=== PATIENT | female | born 1980 | race Caucasian/White ===

== ENCOUNTER 2016-09-17 17:58 | Inpatient (IN) | payer BC ==
[2016-09-17 22:42] LABS: Hematocrit 37 % (35-47); Hemoglobin 12.3 g/dl (12.0-16.0); Mean Corpuscular HGB Conc 34 g/dl (31-36); Mean Corpuscular Hemoglobin 30 pg (27-31); Mean Corpuscular Volume 88 fL (80-97); Mean Platelet Volume 9 um3 (7.4-10.4); Red Blood Count 4.16 10^6/ul (4.0-5.4); Red Cell Distribution Width 15 % (10.5-15); White Blood Count 21.8 10^3/ul (3.5-10.8)
[2016-09-17] MEDS ORDERED: Ondansetron INJ* 2 MG/ML VIAL ONE (23:06)
[2016-09-17] MEDS ORDERED: Ondansetron INJ* 2 MG/ML VIAL IV ONE (23:06)
[2016-09-17] MEDS ORDERED: OBEPIDURAL* 250 ML ONE (23:12)
[2016-09-17] MEDS ORDERED: Terbutaline INJ* 1 MG/ML VIAL SUBCUT ONE (23:49)
[2016-09-17] MEDS ORDERED: Terbutaline INJ* 1 MG/ML VIAL ONE (23:51)
[2016-09-18] MEDS ORDERED: Sodium Bicarbonate 8.4% SYR* 10 ML SYRINGE ONE (00:12)
[2016-09-18] MEDS ORDERED: Morphine PF AMP (0.5MG/ML)* 5 MG/10 ML AMP ONE (00:16)
[2016-09-18] MEDS ORDERED: Sodium Citrate/Citric Acid* 15 ML UDC ONE (00:20)
[2016-09-18] MEDS ORDERED: ceFOXitin 2 GM IVPREMIX* 2 GM/50 ML BAG ONE (00:20)
[2016-09-18] MEDS ORDERED: OXYTOCIN* 10 UNITS/ML 1 ML VIAL ONE ×2 (00:29→01:01)
[2016-09-18] MEDS ORDERED: Ondansetron INJ* 2 MG/ML VIAL ONE (00:29)
[2016-09-18] MEDS ORDERED: Phenylephrine IV* 40 MCG/ML 10 ML SYRINGE ONE (00:29)
[2016-09-18] MEDS ORDERED: Lidocaine 2% EPI 1:200000 MPF* 20 ML VIAL ONE (00:29)
[2016-09-18] MEDS ORDERED: Dexamethasone IV* 4 MG/ML 1 ML (4 MG) ONE (00:29)
[2016-09-18] MEDS ORDERED: ceFOXitin 2 GM IVPREMIX* 2 GM/50 ML BAG IVPB ONE (00:37)
[2016-09-18] MEDS ORDERED: Ketorolac INJ* 30 MG/ML 1 ML VIAL IV PRN (01:06)
[2016-09-18] MEDS ORDERED: fentaNYL* 50 MCG/ML 2 ML VIAL (100 MCG VIAL) IV PRN (01:06)
[2016-09-18] MEDS ORDERED: Naloxone* 0.4 MG/ML 1 ML VIAL IV PRN (01:06)
[2016-09-18] MEDS ORDERED: Scopolomine PATCH Remove* 1 NOTE MISC PATCH OFF PRN (01:06)
[2016-09-18] MEDS ORDERED: oxyCODONE/Acetamin 5/325 MG* TAB PO PRN ×3 (01:06→16:30)
[2016-09-18] MEDS ORDERED: Sodium Citrate/Citric Acid* 15 ML UDC PO PRN (01:06)
[2016-09-18] MEDS ORDERED: Scopolamine 1.5 mg* PATCH TRANSDERM PRN (01:06)
[2016-09-18] MEDS ORDERED: Famotidine TAB* 20 MG PO PRN (01:06)
[2016-09-18] MEDS ORDERED: Nalbuphine* 20 MG/ML 1 ML VIAL IV PRN ×2 (01:06)
[2016-09-18] MEDS ORDERED: Phenylephrine IV* 40 MCG/ML 10 ML SYRINGE IV PUSH PRN ×2 (01:06)
[2016-09-18] MEDS ORDERED: DiMENhydriNATE IV* 50 MG/ML VIAL IV PUSH PRN (01:06)
[2016-09-18] MEDS ORDERED: Ondansetron INJ* 2 MG/ML VIAL IV PRN (01:06)
[2016-09-18] MEDS ORDERED: Glycerin ADULT SUPP PR PRN (02:00)
[2016-09-18] MEDS ORDERED: Zolpidem TAB* 5 MG PO PRN (02:00)
[2016-09-18] MEDS ORDERED: Ibuprofen TAB* 600 MG PO SCH ×2 (02:00→11:00)
[2016-09-18] MEDS ORDERED: Acetaminophen TAB* 325 MG PO PRN (02:00)
[2016-09-18] MEDS ORDERED: Witch Hazel PAD* JAR TOPICAL PRN (02:00)
[2016-09-18] MEDS ORDERED: Dibucaine 1% 28.35 GM TUBE PR PRN (02:00)
--- NOTE | 2016-09-18 04:35 | OP ---
OPERATIVE NOTE: DATE OF SURGERY: 09/18/16 DATE OF : 84 SURGEON: Edna Rodriguez MD [employer] TENDER: Manuel Pelayo CNM PRE-OP DIAGNOSIS: Intrauterine gestation at 41 weeks gestational age, category 2 heart tracin g remote from delivery. POST-OP DIAGNOSIS: Intrauterine gestation at 41 weeks gestational age, category 2 heart yosvany ng remote from delivery, thick meconium. OPERATIVE PROCEDURE: Primary low transverse section. ESTIMATED BLOOD LOSS: 800 mL. FLUIDS: Crystalloid. DRAINS: Weaver catheter. COUNTS: All correct. INDICATIONS: The patient presented to Labor and Delivery in active labor, was only 3 cm. She had i nitially had variable decelerations. She received an epidural and eventually she began having recur rent late decelerations. She was nitin every 2 to 3 minutes at this point in time. She was g iven a dose terbutaline which resulted in an improved heart tracing. However, due to the marky y stage of labor and significant decelerations with contraction, the discussion was had with the pat ient and the decision was made to proceed with primary section. Consents were signed and qu estions were answered. FINDINGS: Normal appearing uterus, ovaries, and tubes. Normal appearing intact placenta. Thick me conium. Female Apgars of 8 and 9, weighing 8 pounds 3 ounces. DESCRIPTION OF PROCEDURE: The patient already had an epidural anesthesia that was found to be adequ ate. She was prepped and draped in the dorsal supine position with a leftward tilt. She also alrea dy had a Weaver catheter in place and SCD's were placed on her legs. A time-out was performed. A Pf annenstiel skin incision was then made with a scalpel and carried down to the underlying layer of fa scia with a combination of sharp dissection and the Bovie. The fascia was incised on either side of the midline and the fascial incision extended laterally with sharp dissection. The inferior edge o f the fascial incision was grasped with Connie clamps, tented up and dissected down with a sharp dis section with the Quinones scissors. Then, the superior edge of the fascial incision was also grasped wi th Connie clamps, tented up and dissected down with sharp dissection. The rectus muscles were separ ated in midline and the peritoneum was entered with a combination of sharp and blunt dissection. Th e peritoneal incision was extended laterally with blunt dissection. A bladder blade was then insert ed. A transverse incision was made in the lower uterine segment with the scalpel. The incision was extended superiorly and inferiorly with blunt pressure. Thick meconium was noted. The infant's he ad was then delivered. One nuchal cord was reduced and the shoulders were delivered followed by the rest of the body. The cord was milked towards the baby and then clamped x2 and cut and the baby wa s handed to the cigarette filter inspector. Another section of cord was clamped for cord blood gases and then cor d blood was collected. The placenta delivered manually and appeared to be intact. The uterus was c leared of clots and debris, and the uterine incision was closed with 0 Vicryl in a running locked fa shion with the second layer of suture imbricating the first. One hvndfo-mu-[id number] suture with 3-0 chr omic was placed on the left hand side of the incision to give good hemostasis. The abdomen was irri gated, the gutters were cleared of clots and debris. The peritoneum was then closed with 3-0 chromi c in a running unlocked fashion. The fascia was closed with 0 Vicryl in a running unlocked fashion. The subcuticular layer was irrigated and the skin was then closed in a running subcuticular fashio n. The incision was cleaned. The Mastisol and Steri-Strips were placed. The patient was moved to the stretcher, and taken to the recovery room in stable condition. [id number]/[facility] #: [id number]
[2016-09-18] MEDS: OBEPIDURAL* 250 ML EPIDURAL SCH (05:28)
[2016-09-18] MEDS: Levothyroxine TAB* 50 MCG TAB PO SCH (05:55)
[2016-09-18] MEDS: Simethicone CHEW TAB* 80 MG PO SCH ×4 (08:59→19:55)
[2016-09-18] MEDS: Docusate CAP* 100 MG PO SCH ×3 (09:08→19:56)
[2016-09-18] MEDS: Ibuprofen TAB* 600 MG PO PRN (18:13)
[2016-09-18] MEDS: oxyCODONE/Acetamin 5/325 MG* TAB PO PRN (19:56)
[2016-09-19] MEDS: Ibuprofen TAB* 600 MG PO PRN ×4 (00:06→18:36)
[2016-09-19] MEDS: oxyCODONE/Acetamin 5/325 MG* TAB PO PRN ×5 (00:06→21:24)
[2016-09-19] MEDS: Levothyroxine TAB* 50 MCG TAB PO SCH (06:31)
[2016-09-19] MEDS: OBEPIDURAL* 250 ML EPIDURAL SCH (06:32)
[2016-09-19 07:07] LABS: Hematocrit 26 % (35-47); Hemoglobin 8.9 g/dl (12.0-16.0); Mean Corpuscular HGB Conc 34 g/dl (31-36); Mean Corpuscular Hemoglobin 31 pg (27-31); Mean Corpuscular Volume 91 fL (80-97); Mean Platelet Volume 8 um3 (7.4-10.4); Red Blood Count 2.92 10^6/ul (4.0-5.4); Red Cell Distribution Width 15 % (10.5-15); White Blood Count 15.5 10^3/ul (3.5-10.8)
[2016-09-19] MEDS: Docusate CAP* 100 MG PO SCH ×3 (08:30→21:23)
[2016-09-19] MEDS: Simethicone CHEW TAB* 80 MG PO SCH ×4 (08:30→21:23)
[2016-09-19] MEDS: Ferrous Gluconate TAB* 324 MG TAB PO SCH ×2 (08:30→21:23)
[2016-09-20] MEDS: Ibuprofen TAB* 600 MG PO PRN ×3 (04:15→21:58)
[2016-09-20] MEDS: oxyCODONE/Acetamin 5/325 MG* TAB PO PRN ×4 (04:15→21:59)
[2016-09-20] MEDS: Levothyroxine TAB* 50 MCG TAB PO SCH (06:32)
[2016-09-20] MEDS: Docusate CAP* 100 MG PO SCH ×3 (08:54→21:58)
[2016-09-20] MEDS: Ferrous Gluconate TAB* 324 MG TAB PO SCH ×2 (08:54→21:58)
[2016-09-20] MEDS: Simethicone CHEW TAB* 80 MG PO SCH ×4 (08:54→21:58)
[2016-09-20] MEDS: OBEPIDURAL* 250 ML EPIDURAL SCH (19:19)
[2016-09-21] MEDS: Ibuprofen TAB* 600 MG PO PRN ×2 (04:06→10:14)
[2016-09-21] MEDS: oxyCODONE/Acetamin 5/325 MG* TAB PO PRN ×2 (04:07→10:14)
[2016-09-21] MEDS: Levothyroxine TAB* 50 MCG TAB PO SCH (06:15)
[2016-09-21 08:39] VITALS: BP 100/58
[2016-09-21] MEDS: Ferrous Gluconate TAB* 324 MG TAB PO SCH (08:55)
[2016-09-21] MEDS: Simethicone CHEW TAB* 80 MG PO SCH (08:55)
[2016-09-21] MEDS: Docusate CAP* 100 MG PO SCH (08:55)
== END 2016-09-21 11:15 | disposition home or self-care (01) | DRG 540 ==
LOC: MCHOBOUT 17:58 → MCHOB 22:10
PROVIDERS: ADMIT Midwife; ATTEND Obstetrics & Gynecology
PROC: 10D00Z1 Extraction of Products of Conception, Low, Open Approach (ICD-10-PCS; principal; 2016-09-18 00:35)
DX: O76 Abnormality in fetal heart rate and rhythm complicating labor and delivery (principal); E03.9 Hypothyroidism, unspecified; O48.0 Post-term pregnancy; O99.284 Endocrine, nutritional and metabolic diseases complicating childbirth; O77.0 Labor and delivery complicated by meconium in amniotic fluid; O90.81 Anemia of the puerperium; D64.9 Anemia, unspecified; Z37.0 Single live birth; Z3A.41 41 weeks gestation of pregnancy
CPT/HCPCS: 36415; 85025; 86850; 86900; 86901; 88307; A9270-GY; J0694; J1100; J2405; J2590; J3105

== ENCOUNTER 2018-10-23 20:56 | Inpatient (IN) | payer BC ==
--- OUTSIDE RECORDS SUMMARY | 2018-10-23 21:00 | XMS REPORT | Continuity of Care Document ---
:1980 External Reference #:[id number] Author Name Jenny Albright MD Address [address] [place] [address] Care Team Providers Name Role Phone Eliana Oropeza PA-C Primary Care Physician Unavailable Payers Date Identification Numbers Payment Provider Subscriber Effective: Policy Number: [id number] Flaquitous BC/BS [facility] [place] [address] [place] PayID: [id number] [address] [address] [place] [address] Problems Active Problems Provider Date H/O: section Manuel Pelayo CNM Onset: 09/18/2016 Resolved Problems Primigravida Manuel Pelayo CNM Onset: 05/16/2016 Resolved: 09/18/2016 Family History Date Family Member(s) Observation Comments Father A&W Mother A&W First Daughter A&W First Brother A&W First Sister A&W Second Sister A&W Paternal Grandfather A&W Paternal Grandmother due to Natural () Causes Maternal Grandfather due to Heart Disease () - surgical complications Maternal Grandmother A&W Social History Type Date Description Comments Sex Unknown Education Highest level completed, Bachelor's Degree Marital Status Lives With Lives With Daughter Pets 2 dogs Occupation Faculty Physician [employer] Cigarette Use Former Cigarette Smoker quit December 2016 1 Pack Daily ETOH Use Alcohol Use Prior To 1 drink/month Tobacco Use Start: Unknown End: Patient is a former Unknown smoker Recreational Drug Use Denies Drug Use Smoking Status Reviewed: 10/16/18 Patient is a former smoker Seat Belt/Car Seat Always uses seat belt STD's Chlamydia Allergies, Adverse Reactions, Alerts Active Allergies Reaction Severity Comments Date Shellfish-derived Products 03/01/2016 Medications Active Medications SIG Qnty Indications Ordering Date Provider Levothyroxine Sodium Alternate between 60tabs Delmy Storey 05/30/2018 100mcg and 75mcg Jin, CNM 50mcg Tablets per day Multi +Dha 1 by mouth every 90caps Kenia Huston, 03/01/2016 day ANP-C 27-0.8-228mg Capsules Magnesium Unknown 500mg Capsules History Medications Ferrousul 1 tab by mouth 90tabs Edna Felipe, 06/16/2016 - 325(65Fe) mg twice a day (take CNM 06/28/2016 Tablets with orange juice or vit c tab) Levothyroxine Sodium alternates 100/75 Unknown - mcg 05/30/2018 50mcg Tablets Folic Acid 1 by mouth every Unknown - 1mg Tablets day 09/26/2016 Dha 1 by mouth every Unknown - 200mg day, ok to use 03/01/2016 Capsules 200-400mg dha Colace Unknown - 10/26/2016 Oxycodone-Acetaminophe Unknown - n 10/26/2016 Ibuprofen take one tab by Unknown - 600mg Tablets mouth every 6 10/26/2016 hours as needed pain Medications Administered in Office Medication SIG Qnty Indications Ordering Provider Date PT SCRN Tbco Id as Non User Jenny Albright MD 10/16/2018 Injection Immunizations CPT Code Status Date Vaccine Lot # [id number] Given 07/23/2018 Tetnus, Diptheria Toxoids And Acellular Pertussis, [id number] PT > 7Yrs Old [id number] Given 04/02/2018 Influenza Vaccine Quadrivalent Preser/Antibiotic [id number] Free Im Use 05687 Given 06/15/2016 Tetnus, Diptheria Toxoids And Acellular Pertussis, [id number] PT > 7Yrs Old Vital Signs Date Vital Result Comment 10/16/2018 9:41am BP Systolic 112 mmHg BP Diastolic 78 mmHg Body Temperature 98.2 F Heart Rate 68 /min Respiratory Rate 16 /min Height 62 inches 5'2" Weight 181.00 lb BMI (Body Mass Index) 33.1 kg/m2 Last Menstrual Period [id number] 2 Parity 1 04/02/2018 1:44pm BP Systolic 106 mmHg BP Diastolic 62 mmHg Height 62 inches 5'2" Weight 153.00 lb BMI (Body Mass Index) 28.0 kg/m2 Last Menstrual Period [id number] 2 Parity 1 01/24/2017 11:25am BP Systolic 104 mmHg BP Diastolic 62 mmHg Height 62 inches 5'2" Weight 145.00 lb BMI (Body Mass Index) 26.5 kg/m2 Last Menstrual Period [id number] 1 Parity 1 10/26/2016 10:04am BP Systolic 114 mmHg BP Diastolic 66 mmHg Height 62 inches 5'2" Weight 140.00 lb BMI (Body Mass Index) 25.6 kg/m2 Last Menstrual Period 7369627 1 Parity 1 09/26/2016 2:32pm BP Systolic 112 mmHg BP Diastolic 60 mmHg Body Temperature 98.2 F Height 62 inches 5'2" Weight 151.00 lb BMI (Body Mass Index) 27.6 kg/m2 Last Menstrual Period [id number] 1 Parity 1 03/01/2016 9:38am BP Systolic 120 mmHg BP Diastolic 70 mmHg Height 62 inches 5'2" Weight 141.00 lb BMI (Body Mass Index) 25.8 kg/m2 Last Menstrual Period 6022535 1 Parity 0 Results Test Date Facility Test Result H/L Range Note Laboratory test 10/02/2018 [facility] TSH 2.57 mcIU/mL N 0.34- 5.60 1 [place] [address] [phone] Free 0.91 ng/dL N 0.61-1.12 2 Laboratory test 09/25/2018 [facility] Genital For GRP B SEE RESULT 3 [place] [address] Strep Only BELOW [phone] Glucose Tolerance 08/06/2018 [facility] GTT 3HR (SEE NOTE) 4 3[place] [address] Gestational [phone] Laboratory test 07/23/2018 [facility] Glucose 1 HR Post 135 mg/ dL N 70-16 5 [place] [address] Prandial 0 [phone] CBC With No Diff 07/23/2018 [facility] White Blood Count 10.4 N 3.5-1 [place] [address] 10^3/uL 0.8 [phone] Red Blood Count 3.74 10^6/uL N 3.70-4.87 Hemoglobin 11.3 g/dL Low 12.0-16.0 Hematocrit 34 % N 33-41 Mean Corpuscular Volume 90 fL N 80-97 Mean Corpuscular Hemoglobin 30 pg N 27-31 Mean Corpuscular HGB Conc 34 g/dL N 31-36 Red Cell Distribution Width 13 % N 10.5-15 Platelet Count 251 10^3/uL N 150-450 Mean Platelet Volume 8.8 fL N 7.4-10.4 Laboratory test 07/23/2018 [facility] TSH 2.98 mcIU/mL N 0.34- 5.60 6 [place] [address] [phone] T4 Free 0.89 ng/dL N 0.61-1.12 7 Urine Drug 05/08/2018 [facility] Urine Amphetamine Negative ng/ mL 8 Comp 20 [place] [address] [phone] Urine Barbiturates Negative ng/mL 9 Urine Benzodiazepines Negative ng/mL 10 Urine Cocaine Negative ng/mL 11 Urine Phencyclidine Negative ng/mL Cutoff: 25 Urine Tetrahydrocannabinol Negative ng/mL Cutoff: 50 12 Creatinine, Urine 129.8 mg/dL Specific [place] 1.021 pH 6.0 Oxidants Negative 13 Adulterants Comment Normal Codeine, Ur Not Detected ng/mL Cutoff: 25 14 Ufihytc-3-qzgk-glucuronide, Ur Not Detected ng/mL 15 Morphine, Ur Not Detected ng/mL Cutoff: 25 16 Hogcyitr-5-ypje-glucuronide, U Not Detected ng/mL 17 6-monoacetylmorphine, Ur Not Detected ng/mL Cutoff: 25 18 Hydrocodone, Ur Not Detected ng/mL Cutoff: 25 19 Norhydrocodone, Ur Not Detected ng/mL Cutoff: 25 20 Dihydrocodeine, Ur Not Detected ng/mL Cutoff: 25 21 Hydromorphone, Ur Not Detected ng/mL Cutoff: 25 22 Fatgbxtduytkg9sxbduvpdmyqpgnr Not Detected ng/mL 23 Oxycodone, Ur Not Detected ng/mL Cutoff: 25 24 Noroxycodone, Ur Not Detected ng/mL Cutoff: 25 25 Oxymorphone, Ur Not Detected ng/mL Cutoff: 25 26 Xrzxamytxbq-2-muyc-glucuronide Not Detected ng/mL 27 Noroxymorphone, Ur Not Detected ng/mL Cutoff: 25 28 Fentanyl, Ur Not Detected ng/mL Cutoff: 2 29 Norfentanyl, Ur Not Detected ng/mL Cutoff: 2 30 Meperidine, Ur Not Detected ng/mL Cutoff: 25 31 Normeperidine, Ur Not Detected ng/mL Cutoff: 25 32 Naloxone, Ur Not Detected ng/mL Cutoff: 25 33 Fthrfjwu-3-naoq-glucuronide, U Not Detected ng/mL 34 Methadone, Ur Not Detected ng/mL Cutoff: 25 35 Eddp, Ur Not Detected ng/mL Cutoff: 25 36 Propoxyphene, Ur Not Detected ng/mL Cutoff: 25 37 Norpropoxyphene, Ur Not Detected ng/mL Cutoff: 25 38 Tramadol, Ur Not Detected ng/mL Cutoff: 25 39 O-desmethyltramadol, Ur Not Detected ng/mL Cutoff: 25 40 Tapentadol, Ur Not Detected ng/mL Cutoff: 25 41 N-desmethyltapentadol, Ur Not Detected ng/mL Cutoff: 50 42 Ngmdztpzvu-gzsn-avjlqvxykjb, U Not Detected ng/mL 43 Buprenorphine, Ur Not Detected ng/mL Cutoff: 5 44 Norbuprenorphine, Ur Not Detected ng/mL Cutoff: 5 45 Norbuprenorphine glucuronide Not Detected ng/mL Cutoff: 20 46 Opioid Interpretation See Comment 47 Laboratory test 05/08/2018 [facility] TSH 2.50 mcIU/mL N 0.34- 5.60 48 [place] [address] [phone] Free 0.95 ng/dL N 0.61-1.12 49 Laboratory test 04/02/2018 [facility] Cytology SEE RESULT 50 [place] [address] BELOW [phone] GC/Chlamydia 04/02/2018 [facility] Chlamydia Negative [place] [address] trachomatis Rna [phone] Neisseria gonorrhoeae (GC) Rna Negative Negative PNL No 04/02/2018 [facility] Rubella Screen Immune Immune 51 [place] [address] [phone] Hemoglobin A1c 5.2 % N 4.0-5.6 52 Hepatitis B Surface Ag Nonreactive Nonreactive 53 Syphillis Igg W/Reflex RPR Nonreactive Nonreactive 54 CBC With No 04/02/2018 [facility] White Blood 11.1 10^3/uL High 3.5-10.8 [place] [address] Count [phone] Red Blood Count 4.33 10^6/uL N 4.00-5.40 Hemoglobin 12.9 g/dL N 12.0-16.0 Hematocrit 38 % N 35-47 Mean Corpuscular Volume 89 fL N 80-97 Mean Corpuscular Hemoglobin 30 pg N 27-31 Mean Corpuscular HGB Conc 34 g/dL N 31-36 Red Cell Distribution Width 14 % N 10.5-15 Platelet Count 315 10^3/uL N 150-450 Mean Platelet Volume 8.2 fL N 7.4-10.4 Type And Screen 04/02/2018 [facility] Patient [place] [address] [phone] Antibody Screen NEGATIVE HIV 1/2 AB 04/02/2018 [facility] HIV 1 2 Nonreactive Nonreactive 55 [place] [address] Antibody [phone] Lead 04/02/2018 [facility] Lead,Venous, < 1.0 g/dL 0.0-4.9 56 [place] [address] B [phone] Venous/Capillary Venous Submitting Laboratory Phone [phone] Parvovirus B19 04/02/2018 [facility] Parvovirus Positive Abnormal Negative Igg [place] [address] (B19) IgG [phone] Antibody Parvovirus (B19) IgM Antibody Negative Negative Parvovirus Interpretation See Comment 58 Laboratory test 04/02/2018 [facility] TSH 4.87 mcIU/mL N 0.34- 5.60 59 [place] [address] [phone] T4 Free 0.86 ng/dL N 0.61-1.12 60 CF + Sma 04/02/2018 [facility] cystic fibrosis Negative N spinal muscular atrophy Negative N 61 PDF Report SEE IMAGE Chromosomes 13, 18, 21 04/02/2018 [facility] Chromosome 13 Negative N 62 + Sex Chromosome Aneuploidy Chromosome 18 Aneuploidy Negative N 63 Chromosome 21 Aneuploidy Negative N 64 Sex Chromosome Analysis Female N 65 PDF Report SEE IMAGE Urine Culture And 04/02/2018 [facility] Urine Culture SEE RESULT 66 [place] [address] BELOW [phone] Laboratory test 09/18/2016 [facility] Surgical SEE RESULT 67 [place] [address] Pathology BELOW [phone] Laboratory test 08/08/2016 [facility] TSH 3.42 N 0.34- 68 [place] [address] mcIU/mL 5.60 [phone] T4 Free 0.78 ng/dL N 0.61-1.12 69 Laboratory test 08/08/2016 [facility] Genital For GRP SEE RESULT 70 [place] [address] B Strep Only BELOW [phone] Glucose 06/21/2016 [facility] GTT 3HR (SEE NOTE) N 71, 72 Tolerance 3HR [place] [address] Gestational Gestational [phone] Laboratory test 06/15/2016 [facility] Glucose 1 HR 142 mg/dL N 70-1 73 [place] [address] Post Prandial 60 [phone] CBC With No Diff 06/15/2016 [facility] White Blood 12.2 High 3.5- [place] [address] Count 10^3/uL 10.8 [phone] Red Blood Count 3.39 10^6/uL Low 4.0-5.4 Hemoglobin 10.3 g/dL Low 12.0-16.0 Hematocrit 31 % Low 35-47 Mean Corpuscular Volume 90 fL N 80-97 Mean Corpuscular Hemoglobin 30 pg N 27-31 Mean Corpuscular HGB Conc 34 g/dL N 31-36 Red Cell Distribution Width 13 % N 10.5-15 Platelet Count 272 10^3/uL N 150-450 Mean Platelet Volume 8 um3 N 7.4-10.4 Laboratory test 06/15/2016 [facility] TSH 2.70 mcIU/mL N 0.34- 5.60 74 [place] [address] [phone] T4 Free 0.86 ng/dL N 0.61-1.12 75 Laboratory test 05/16/2016 [facility] TSH 3.40 mcIU/mL N 0.34- 5.60 76 [place] [address] [phone] T4 Free 0.95 ng/dL N 0.61-1.12 77 Sequential Integreated SCRN 2 [place] 03/30/2016 [facility] Interpretation SEE BELOW 78 Risk For Ontd <1:5000 Age Risk Down Syndrome 1:390 LIBBY Down Syndrome Risk 1:280 <1:270 LIBBY Trisomy 18 Risk <1:5000 <1:100 Calculated Gestational Age 16.7 79 Afp,Serum 20.3 ng/mL Afp Mom 0.54 80 HCG,Serum 36.6 IU/mL HCG Mom 1.17 Estriol,Free 0.86 ng/mL Estriol Mom 0.84 Inhibin A,Dimeric 245 pg/mL Inhibin A Mom 1.43 Christian-A 1471.7 ng/mL 81 Christian-A Mom 1.57 NT Mom 1.31 82 Referring Physician Name DEVIN Referring Physician Phone NG Referring Physician Npi EPHRAIM Specimen # From Part 1 [id number] Date Of 1980 Collection Date 03/30/2016 Maternal Weight 141 lbs Est'd Date Of Delivery 09/08/2016 Nuchal Translucency 1.9 mm [place] Rump Length 64 mm Ultrasound Date 03/01/2016 Nasal Bone NOT GIVEN Mother's Ethnic Origin Insulin Depend Diabetic N Repeat Specimen N Number Of Fetuses 1 HX Of Neural Tube Defects N Twin B Nasal Bone NOT GIVEN 83 Laboratory 03/01/2016 [facility] Human POSITIVE Abnormal Negative [address] [place] [address] Papilloma [phone] Virus Rna GC/Chlamydia 03/01/2016 [facility] Chlamydia Negative [place] [address] trachomatis [phone] Rna Neisseria gonorrhoeae (GC) Rna Negative N Negative Laboratory test 03/01/2016 [facility] Cytology SEE RESULT 85 [place] [address] BELOW [phone] Thyroid 03/01/2016 [facility] Thyroid Stim 4.0 mIU/L N 0.3- 4.2 86 [place] [address] Hormone Wagoner [phone] Toxoplasma Igg 03/01/2016 [facility] Toxoplasma IgG Negative N Negative & [place] [address] Antibody [phone] Toxoplasma IgG Antibody Index <3 IU/mL N 87 Toxoplasma IgM Antibody Negative N Negative 88 Lead 03/01/2016 [facility] Lead <1.0 g/dL N 0.0-4.9 89 [place] [address] [phone] HIV 1/2 AB 03/01/2016 [facility] HIV 1 2 Nonreactive N Nonreactive [address] [place] [address] Antibody [phone] Type And 03/01/2016 [facility] [place] [address] Blood Type [phone] Antibody Screen NEGATIVE N CBC With No 03/01/2016 [facility] White Blood 10.5 10^3/uL N 3.5-10.8 [place] [address] Count [phone] Red Blood Count 4.03 10^6/uL N 4.0-5.4 Hemoglobin 12.5 g/dL N 12.0-16.0 Hematocrit 36 % N 35-47 Mean Corpuscular Volume 90 fL N 80-97 Mean Corpuscular Hemoglobin 31 pg N 27-31 Mean Corpuscular HGB Conc 34 g/dL N 31-36 Red Cell Distribution Width 13 % N 10.5-15 Platelet Count 295 10^3/uL N 150-450 Mean Platelet Volume 9 um3 N 7.4-10.4 PNL No 03/01/2016 [facility] Rubella Screen Immune IU/ mL N Immune 91 [place] [address] [phone] Hemoglobin A1c 5.2 % N Less than 6.0 92 Hepatitis B Surface Ag Nonreactive N Nonreactive 93 Syphillis Igg W/Reflex RPR Nonreactive N Nonreactive 94 Sequential Integrated SCRN 1 [place] 03/01/2016 [facility] Interpretation SEE BELOW 95 Age Risk Down Syndrome 1:290 LIBBY Down Syndrome Risk IN PROCESS <1:50 [facility] [place] Trisomy 18 Risk IN PROCESS <1:100 Calculated Gestational Age 12.6 96 Christian-A 1471.7 ng/mL 97 Christian-A Mom 1.57 HCG,Serum 95.2 IU/mL HCG Mom 1.07 NT Mom 1.31 98 Referring Physician Name DEVIN 99 Referring Physician Phone [phone] Referring Physician Npi [id number] [phone] Date Of 1980 102 Collection Date 03/01/2016 103 Maternal Weight 141 lbs 104 Est'd Date Of Delivery 09/08/2016 105 BERNARD Determined By US 106 Mother's Ethnic Origin C 107 Number Of Fetuses 1 108 Insulin Depend Diabetic N 109 Repeat Specimen N 110 HX Of Neural Tube Defects N 111 Prev Down Synd N 112 Donor Egg N 113 Donor Age:Egg Retrieval NG 114 Ultrasound Date 03/01/2016 115 Public Service Officer's Name WILMA 116 NTQR Public Service Officer Id# [id number] NTQR Location Id# [id number] NTQR Reading Phys Id# [id number] FMF Public Service Officer Id# NG 120 [place] Rump Length 64 mm 121 Nuchal Translucency 1.9 mm 122 Nasal Bone NOT GIVEN 123 If Twins NOT GIVEN 124 Twin B CRL NOT GIVEN mm 125 Twin B NT NOT GIVEN mm 126 Twin B Nasal Bone NOT GIVEN 127 Urine Culture And 03/01/2016 [facility] Urine Culture SEE RESULT 128 [place] [address] BELOW [phone] 1 [id number] 3 SEE RESULT BELOW Name: BLAISEABENA : [address]: Jenny Albright MD Acct: [id number] Unit: [id number] AGE: 38 Location: [facility] Re09/25/18 SEX: F Status: REG REF SPEC: [id number] LEON: 09/25/18-[address] [place] [address] DR: Jenny Albright MD REQ: [id number] RECD: 09/25/18 STATUS: COMP _ SOURCE: CER/VAG/RE SPDESC: ORDERED: Grp B Strp Scrn COMMENTS: [id number] QUERIES: Is Patient Penicillin Allergic? N Is patient penicillin allergic and/or sensitivities needed? N Provider Requisition # C77#[id number]_ Procedure Result Reported Site Group B Strep Culture Screen Final 09/27/18- 1122 ML Group B Strep Screen Negative * ML - Main Lab . END OF REPORT DEPARTMENT OF PATHOLOGY, [address] [place] [address] Angelito Gee M.D. Director [facility] # [id number] GLU Fast 79 Col: 08/06/18 0735 GLU 1HR 150 Col: 08/06/18 0840 GLU 2HR 149 Col: 08/06/18 0940 GLU 3HR 138 Col: 08/06/18 1040 GLU Interp Col: 08/06/18 0735 GTT normal ranges for obstetrics per the [employer] (ACOG).Based on 100 gm glucose load: Fasting <95 mg/dl 1hr <180 mg/dl 2hr <155 mg/dl 3hr <140 mg/dl 5 [id number] 6 [id number] 7 [id number] 8 REFERENCE VALUE Cutoff: 500 9 REFERENCE VALUE Cutoff: 200 10 REFERENCE VALUE Cutoff: 100 11 REFERENCE VALUE Cutoff: 150 12 ADDITIONAL INFORMATION This report is intended for use in clinical monitoring or management of patients. It is not intended for use in employment-related testing. 13 REFERENCE VALUE Cutoff: 200 mg/L 14 Tylenol 3 15 Metabolite of codeine REFERENCE VALUE Cutoff: 100 16 Fifi Zamora, Contin; Also a minor metabolite (10%) of codeine and can be seen in low concentrations (<2,000 ng/mL) with poppy seed ingestion. 17 Metabolite of morphine REFERENCE VALUE Cutoff: 100 18 Metabolite of heroin 19 Lortab, [place], Vicodin; Also a very minor metabolite of codeine and impurity (<1%) of oxycodone. 20 Metabolite of hydrocodone 21 Metabolite of hydrocodone 22 Dilaudid, Exalgo; Also a metabolite of hydrocodone and a minor (<5%) metabolite of morphine. 23 Metabolite of hydromorphone REFERENCE VALUE Cutoff: 100 24 Endocet, Percocet, Oxycontin 25 Metabolite of oxycodone 26 Numorphan, Opana; Also a metabolite of oxycodone. 27 Metabolite of oxymorphone REFERENCE VALUE Cutoff: 100 28 Metabolite of oxymorphone 29 Actiq, Duragesic, Fentora 30 Metabolite of fentanyl 31 Demerol 32 Metabolite of meperidine 33 Narcan 34 Metabolite of naloxone REFERENCE VALUE Cutoff: 100 35 Dolophine 36 Metabolite of methadone 37 Darvon, Darvocet 38 Metabolite of propoxyphene 39 Tradol, Ultram, Ultracet 40 Metabolite of tramadol 41 Nucynta 42 Metabolite of tapentadol 43 Metabolite of tapentadol REFERENCE VALUE Cutoff: 100 44 Buprenex, Suboxone 45 Metabolite of buprenorphine 46 Metabolite of buprenorphine 47 No opioids were detected. The absence of expected drug(s) and/or drug metabolite(s) may indicate non-compliance, altered pharmacokinetics, inappropriate timing of specimen collection relative to drug administration, diluted/adulterated urine, or limitations of testing. ADDITIONAL INFORMATION This test was developed and its performance characteristics determined by [facility] in a manner consistent with CLIA requirements. This test has not been cleared or approved by the U.S. Food and Drug Administration. Test Performed by: [facility] [address] [place] [address] 48 [id number] 49 [id number] 50 SEE RESULT BELOW Name: ABENA WELSH : [address]: Jo Walden CNM Acct: [id number] Unit: [id number] AGE: 37 Location: [facility] Re04/02/18 SEX: F Status: REG REF SPEC: [id number] LEON: 04/02/18-[address]: Jo Walden CNM REQ: [id number] RECD: 04/03/18 STATUS: SOUT _ ORDERED: TP IMAGE ANALYS, HPV/Thin Prep COMMENTS: [id number] Negative for Intraepithelial lesion or Malignancy Date Time Test Result Flag (u) Normal Range 04/02/18 1507 @ HPV RNA Negative Negative @ @ The high-risk HPV types detected by the assay include: 16, @ 18, 31, 33, 35, 39, 45, 51, 52, 56, 58, 59, 66, and 68. A. Ectocervical/Endocervical Specimen Adequacy: Satisfactory of evaluation Transformation zone component identified Patient Information: HPV: High risk HPV RNA testing regardless of pap results. Actual Specimen Date: 04/02/18 Last Menstrual Date: 01/15/18 Date of Last Specimen: 03/01/16 ?: Y Post Menopausal?: N Hysterectomy?: N Previous Abnormal Pap Smears?:N Signed by and Reported on: EMEKA Keller (ASCP) 6150 This Pap test was evaluated with the assistance of the [employer] Test Imaging System. Due to cytologic findings at the appliance line assembler microscope, comprehensive manual rescreening by a Record Filing Clerk may be required. The Pap Smear is a screening test designed to aid in the detection of premalignant and malignant conditions of the uterine cervix. It is not a diagnostic procedure and should not be used as the sole means of detecting cervical cancer. Both false- positive and false- negative reports do occur. Depending on your risk status, a Pap smear should be obtained and evaluated every 1-3 years. END OF REPORT DEPARTMENT OF PATHOLOGY, [address] [place] [address] Angelito Gee M.D. Director [facility] # [id number] 51 [id number] 52 Therapeutic target for the treatment of diabetes mellitus patients is <7% HBA1C, and in selective patients <6.0%. Please refer to [employer] [place] diabetic care guidelines for further information. 53 [id number] 54 Warning: A positive result is not useful for establishing a diagnosis of syphilis. In most situations, such a result may reflect a prior treated infection; a negative result can exclude a diagnosis of syphilis except for incubating or early primary disease. 55 It is recognized that currently available assays for the detection of antibodies to HIV-1 and/or HIV-2 may not detect all infected individuals. HIV antibodies may be undetectable in some stages of the infection and in some clinical conditions. The performance of this assay has not been established for populations of infants or children. Assayed by Chemiluminescence Microparticle Immunoassay on the Siemens Advia Centaur CP. Values obtained with different methods or kits cannot be used interchangeably.The diagnostic specificity of the ADVIA Centaur 1/O/2 Enhanced assay in the low risk population was 99.90% (6052/6058) with a 95% confidence interval of 99.78 to 99.96%. 56 ADDITIONAL INFORMATION Testing performed by Inductively Coupled Plasma-Mass Spectrometry (ICP-MS). This test was developed and its performance characteristics determined by [facility] in a manner consistent with CLIA requirements. This test has not been cleared or approved by the U.S. Food and Drug Administration. 57 Test Performed by: [facility] - [address] [address] 58 RESULT: Results suggest past infection. ADDITIONAL INFORMATION This test has been modified from the ink blender's instructions. Its performance characteristics were determined by [facility] in a manner consistent with CLIA requirements. This test has not been cleared or approved by the U.S. Food and Drug Administration. Test Performed by: [facility] [address] [place] [address] 59 [id number] 60 [id number] 61 Negative result: Negative for g.31173A>G SNP and SMN1: 2 copies. 62 No aneuploidy detected. 63 No aneuploidy detected. 64 No aneuploidy detected. 65 Female: No aneuploidy detected. 66 SEE RESULT BELOW Name: ABENA WELSH : [address]: Jo Walden CNM Acct: [id number] Unit: [id number] AGE: 37 Location: [facility] Re04/02/18 SEX: F Status: REG REF SPEC: [id number] LEON: 04/02/18-[address] [facility] [address]: Jo Walden CNM REQ: [id number] RECD: 04/02/182696 STATUS: COMP _ SOURCE: URINE SPDESC: ORDERED: Urine Culture COMMENTS: [id number] Urine Source: Random Procedure Result Reported Site Urine Culture Final 04/03/18- 1620 ML No Growth (<1,000 CFU/mL) * ML - Main Lab . END OF REPORT DEPARTMENT OF PATHOLOGY, [address] [place] [address] Angelito Gee M.D. Director [facility] # [id number] 67 SEE RESULT BELOW Name: ABENA WELSH : [address]: Manuel Pelayo [facility] Acct: [id number] Unit: [id number] AGE: 36 Location: [facility] [place], [place] 104-01 Re09/17/16 Dis: 09/21/16 SEX: F Status: DIS IN SPEC: [id number] LEON: 09/18/[address] [facility] [address]: Manuel Pelayo [facility] REQ: [id number] RECD: 09/18/16 STATUS: SOUT _ ORDERED: LEVEL 5 FINAL DIAGNOSIS Uterus, placenta, delivery: -- Mature, third trimester placenta with three-vessel cord and intact amnionic membranes (628 g). -- Early acute chorioamnionitis and funisitis noted. -- Moderate meconium histiocytosis identified. PRE-OPERATIVE DIAGNOSIS Category II tracing remote from delivery GROSS DESCRIPTION The specimen is received in formalin labeled, Placenta, and consists of a 628 g placenta with attached cord and membranes. The placental disc measures 23.0 x 20.0 by up to 2.0 cm and has an eccentric inserted 50.2 by up to 1.5 cm three-vessel, yellow-white umbilical cord which attaches 3.4 cm from the placental margin. The surface is glistening blue-bess to yellow-green. The maternal surface is lobulated and mostly intact with normal cotyledons and less than 5% of marginal fibrin deposition. The maternal surface is predominantly glistening white-alvarez. The cut surface is spongy red- purple. The membranes are thin, translucent, pliable and predominantly stripped from the surface. Independent Distributor sections are submitted in two cassettes. Signed (signature on file) Angelito Gee MD 1536 END OF REPORT * ML=Testing performed at Main Lab DEPARTMENT OF PATHOLOGY, [address] [place] [address] Angelito Gee M.D. Director [facility] # [id number] 68 [id number] SEE RESULT BELOW Name: ABENA WELSH : [address]: Lola BLEDSOE Acct: [id number] Unit: [id number] AGE: 35 Location: [facility] Re08/08/16 SEX: F Status: REG REF SPEC: [id number] LEON: 08/08/16-[address] [facility] [address]: Lola BLEDSOE REQ: [id number] RECD: 08/08/16 STATUS: COMP _ SOURCE: CER/VAG/RE SPDESC: ORDERED: Grp B Strp Scrn COMMENTS: [id number] QUERIES: Is Patient Penicillin Allergic? N Is patient penicillin allergic and/or sensitivities needed? N Provider Requisition # C77#[id number]_ Procedure Result Reported Site Group B Strep Culture Screen Final 08/10/16- 951 ML Group B Strep Screen Negative * ML - [facility] LAB ([facility]) . END OF REPORT * ML=Testing performed at Main Lab DEPARTMENT OF PATHOLOGY, [address] [place] [address] Angelito Gee M.D. Director [facility] # [id number] 71 [id number] GLU Fast 82 Col: 06/21/16 1200 GLU 1HR 158 Col: 06/21/16 1300 GLU 2HR 160 Col: 06/21/16 1400 GLU 3HR 126 Col: 06/21/16 1500 GLU Interp Col: 06/21/16 1200 GTT normal ranges for obstetrics per the [employer] (ACOG).Based on 100 gm glucose load: Fasting <95 mg/dl 1hr <180 mg/dl 2hr <155 mg/dl 3hr <140 mg/dl 73 [id number] 77 [id number] SCREEN NEGATIVE FOR OPEN NTD, DOWN SYNDROME AND TRISOMY 18. NT WAS USED IN THE RISK CALCULATIONS. 79 [place] rump length (CRL) was used to calculate gestational age. BERNARD, if provided, was not used for gestational age dating. 80 Reference Range: <2.50 IDD <1.90 TWINS <4.00 TWINS IDD <3.50 TRIPLETS <4.50 81 This test was performed using a kit that has not been cleared or approved by the FDA. The analytical performance characteristics of this test have been determined by [employer] [facility]. This test should not be used for diagnosis without confirmation by other medically established means. 82 The Sequential Integrated Screen combines CHRISTIAN-A and hCG with or without a nuchal translucency measurement in the first trimester with AFP, unconjugated estriol, intact hCG and Inhibin A in the second trimester. This provides a useful screening test for detection of open neural tube defects, Down syndrome and Trisomy 18. It should be noted that normal results can never guarantee the of a normal baby and that 2 to 3 percent of newborns have some type of physical or mental defect, many of which are undetectable through any known diagnostic technique. Interpretation reviewed by: Bibi Caba, Ph.D., [facility]. This is a screening test, not a diagnostic test. This risk assessment is based on demographic data provided by the ordering physician. Please notify the laboratory promptly if any data are incorrect. If you have questions concerning this report: For clinical consultation, call ; For technical questions, call ext [phone]; For recalculations, fax to [phone]. 83 For additional information, please refer to http://education.Quantum OPS.Steamsharp Technology/faq/FAQ94 (This link is provided for informational/educational purposes only.) 84 The high-risk HPV types detected by the assay include: 16, 18, 31, 33, 35, 39, 45, 51, 52, 56, 58, 59, 66, and 68. 85 SEE RESULT BELOW Name: ABENA WELSH : [address]: Kenia Wolf Acct: [id number] Unit: [id number] AGE: 35 Location: [facility] Re03/01/16 SEX: F Status: REG REF SPEC: [id number] LEON: 03/01/16-[address]: Kenia Wolf REQ: [id number] RECD: 03/01/16 STATUS: SOUT _ ORDERED: IMAGE ANALYSIS, HPV/Thin Prep COMMENTS: [id number] FINAL DIAGNOSIS Negative for Intraepithelial lesion or Malignancy Reactive cellular changes associated with Inflammation (includes typical repair) A. Ectocervical/Endocervical Specimen Adequacy: Satisfactory of evaluation Transformation zone component not identified Patient Information: HPV: High risk HPV RNA testing regardless of pap results. Actual Specimen Date: 03/01/16 Last Menstrual Date: 12/06/15 ?: Y Date Time Test Result Flag (u) Normal Range 03/01/16 1119 HPV RNA POSITIVE H Negative The high-risk HPV types detected by the assay include: 16, 18, 31, 33, 35, 39, 45, 51, 52, 56, 58, 59, 66, and 68. Signed (signature on file) Angelito Gee MD 1633 This Pap test was evaluated with the assistance of the HubbubPrep Test Imaging System. Due to cytologic findings at the appliance line assembler microscope, comprehensive manual rescreening by a Record Filing Clerk may be required. The Pap Smear is a screening test designed to aid in the detection of premalignant and malignant conditions of the uterine cervix. It is not a diagnostic procedure and should not be used as the sole means of detecting cervical cancer. Both false- positive and false- negative reports do occur. Depending on your risk status, a Pap smear should be obtained and evaluated every 1-3 years. END OF REPORT * ML=Testing performed at Main Lab DEPARTMENT OF PATHOLOGY, [address] [place] [address] Angelito Gee M.D. Director [facility] # [id number] 86 Test Performed by: [address] [address] Sampler And Test Preparer: Kem Philip II, M.D., Ph.D. 87 REFERENCE VALUE <=9 IU/mL (Negative) 10-11 IU/mL (Equivocal) >=12 IU/mL (Positive) Test Performed by: [facility] [address] [address] Sampler And Test Preparer: Kem Philip II, M.D., Ph.D. 88 No IgM antibodies to T. gondii detected. Results may be negative up to 7 days following infection. 89 ADDITIONAL INFORMATION Testing performed by Inductively Coupled Plasma-Mass Spectrometry (ICP-MS). This test was developed and its performance characteristics determined by [facility] in a manner consistent with CLIA requirements. This test has not been cleared or approved by the U.S. Food and Drug Administration. 90 It is recognized that currently available assays for the detection of antibodies to HIV-1 and/or HIV-2 may not detect all infected individuals. HIV antibodies may be undetectable in some stages of the infection and in some clinical conditions. The performance of this assay has not been established for populations of infants or children. Assayed by Chemiluminescence Microparticle Immunoassay on the Siemens Advia Centaur CP. Values obtained with different methods or kits cannot be used interchangeably.The diagnostic specificity of the ADVIA Centaur 1/O/2 Enhanced assay in the low risk population was 99.90% (6052/6058) with a 95% confidence interval of 99.78 to 99.96%. 91 [id number] Therapeutic target for the treatment of diabetes Mellitus patients is <7% HBA1C, and in selective patients <6.0%.Please refer to [place] [employer] Diabetic care guidelines for further information. 93 [id number] 94 Warning: A positive result is not useful for establishing a diagnosis of syphilis. In most situations, such a result may reflect a prior treated infection; a negative result can exclude a diagnosis of syphilis except for incubating or early primary disease. 95 This patient's risk does not exceed the first trimester cut-off for Down syndrome or trisomy 18. The integrated screen calculation is awaiting the second trimester sample. NT WAS USED IN THE RISK CALCULATIONS. Thank you for submitting this patient's Part 1 specimen. These first trimester values will be incorporated with the second trimester values as part of the integrated testing process. Please submit the Part 2 specimen between 03/18/2016-05/12/2016 (15.0 and 22.9 weeks gestation) with 03/18/2016-03/31/2016 (15.0 - 16.9 weeks gestation) being optimal. When submitting Part 2, please include the following Specimen # from Part 1: [id number] 96 [place] rump length (CRL) was used to calculate gestational age. BERNARD, if provided, was not used for gestational age dating. 97 This test was performed using a kit that has not been cleared or approved by the FDA. The analytical performance characteristics of this test have been determined by [employer] [facility]. This test should not be used for diagnosis without confirmation by other medically established means. 98 Interpretation reviewed by: Sam Sanchez, Ph.D., [facility] This is a screening test, not a diagnostic test. This risk assessment is based on demographic data provided by the ordering physician. Please notify the laboratory promptly if any data are incorrect. If you have questions concerning this report: For clinical consultation, call ; For technical questions, call ext [phone]; For recalculations, fax to . For additional information, please refer to http://Radario.Quantum OPS.Steamsharp Technology/faq/FAQ89 (This link is being provided for informational/educational purposes only.) 99 For additional information, please refer to http://Radario.Quantum OPS.Steamsharp Technology/faq/FAQ89 (This link is being provided for informational/educational purposes only.) 100 For additional information, please refer to http://Radario.Quantum OPS.Steamsharp Technology/faq/FAQ89 (This link is being provided for informational/educational purposes only.) 101 For additional information, please refer to http://Radario.Quantum OPS.Steamsharp Technology/faq/FAQ89 (This link is being provided for informational/educational purposes only.) 102 For additional information, please refer to http://Radario.Format Dynamics/faq/FAQ89 (This link is being provided for informational/educational purposes only.) 103 For additional information, please refer to http://Radario.Format Dynamics/faq/FAQ89 (This link is being provided for informational/educational purposes only.) 104 For additional information, please refer to http://Geeklist/faq/FAQ89 (This link is being provided for informational/educational purposes only.) 105 For additional information, please refer to http://Geeklist/faq/FAQ89 (This link is being provided for informational/educational purposes only.) 106 For additional information, please refer to http://Geeklist/faq/FAQ89 (This link is being provided for informational/educational purposes only.) 107 For additional information, please refer to http://Geeklist/faq/FAQ89 (This link is being provided for informational/educational purposes only.) 108 For additional information, please refer to http://Geeklist/faq/FAQ89 (This link is being provided for informational/educational purposes only.) 109 For additional information, please refer to http://Geeklist/faq/FAQ89 (This link is being provided for informational/educational purposes only.) 110 For additional information, please refer to http://Geeklist/faq/FAQ89 (This link is being provided for informational/educational purposes only.) 111 For additional information, please refer to http://Geeklist/faq/FAQ89 (This link is being provided for informational/educational purposes only.) 112 For additional information, please refer to http://Geeklist/faq/FAQ89 (This link is being provided for informational/educational purposes only.) 113 For additional information, please refer to http://Geeklist/faq/FAQ89 (This link is being provided for informational/educational purposes only.) 114 For additional information, please refer to http://Geeklist/faq/FAQ89 (This link is being provided for informational/educational purposes only.) 115 For additional information, please refer to http://Geeklist/faq/FAQ89 (This link is being provided for informational/educational purposes only.) 116 For additional information, please refer to http://Geeklist/faq/FAQ89 (This link is being provided for informational/educational purposes only.) 117 For additional information, please refer to http://Geeklist/faq/FAQ89 (This link is being provided for informational/educational purposes only.) 118 For additional information, please refer to http://Geeklist/faq/FAQ89 (This link is being provided for informational/educational purposes only.) 119 For additional information, please refer to http://Geeklist/faq/FAQ89 (This link is being provided for informational/educational purposes only.) 120 For additional information, please refer to Tableau Software://Geeklist/faq/FAQ89 (This link is being provided for informational/educational purposes only.) 121 For additional information, please refer to http://Geeklist/faq/FAQ89 (This link is being provided for informational/educational purposes only.) 122 For additional information, please refer to http://Geeklist/faq/FAQ89 (This link is being provided for informational/educational purposes only.) 123 For additional information, please refer to http://Geeklist/faq/FAQ89 (This link is being provided for informational/educational purposes only.) 124 For additional information, please refer to http://Geeklist/faq/FAQ89 (This link is being provided for informational/educational purposes only.) 125 For additional information, please refer to http://Geeklist/faq/FAQ89 (This link is being provided for informational/educational purposes only.) 126 For additional information, please refer to http://Geeklist/faq/FAQ89 (This link is being provided for informational/educational purposes only.) 127 For additional information, please refer to http://Geeklist/faq/FAQ89 (This link is being provided for informational/educational purposes only.) 128 SEE RESULT BELOW Name: BLAISEABENA : [address]: Kenia Wolf Acct: [id number] Unit: [id number] AGE: 35 Location: [facility] Re03/01/16 SEX: F Status: REG REF SPEC: [id number] LEON: 03/01/[address]: Kenia Wolf REQ: [id number] RECD: 03/01/16 STATUS: COMP _ SOURCE: URINE SPDESC: ORDERED: Urine Culture COMMENTS: [id number] Procedure Result Reported Site Urine Culture Final 03/02/16- 1606 ML No Growth (<1,000 CFU/mL) * ML - MAIN LAB ([facility]) . END OF REPORT * ML=Testing performed at Main Lab DEPARTMENT OF PATHOLOGY, [address] [place] [address] Angelito Gee M.D. Director [facility] # [id number] Procedures Date Code Description Status 09/25/2018 27960 Echography Uterus Limited Completed 06/04/2018 83038 Echography Uterus Complete Completed 04/02/2018 56447 OB Ultrasound First Trimester Completed 09/18/2016 59393 Delivery Only Completed 09/18/2016 80713 Delivery Routine Completed 09/16/2016 57356 Echography Uterus Limited Completed 09/16/2016 70175 Non-Stress Test Completed 04/20/2016 11421 Echography Uterus Complete Completed 03/01/2016 03408 Nuchal Translucency Ultrasound /First Gestation Completed Encounters Type Date Location Provider Dx Diagnosis Office Visit 10/16/2018 [facility] Jenny Albright MD Z01.818 Encounter for other 9:30a preprocedural examination O34.211 Matern care for low transverse scar from prev del Office Visit 01/24/2017 11:20a [facility] Kenia Huston, R32 Unspecified urinary ANP-C incontinence Plan of Treatment Future Appointment(s):10/23/2018 3:00 pm - Jazmin Mendenhall MD at [facility]10/29/2018 7:45 am - Sanjuana Koch CNM at [facility] [place] [facility] R011/28/2018 1:30 pm - Jenny Albright MD at [facility]11/05/2018 11:20 am - Delmy Abdi CNM at [facility]10/29/2018 7:45 am - Jenny Albright MD at [facility] [place] R1 - JENNY Gonsales-CR32 Unspecified urinary incontinenceFollow up:r/v prn could order u/s if feelling of pressure on bladder
[2018-10-23] MEDS ORDERED: Witch Hazel PAD* JAR TOPICAL PRN (21:44)
[2018-10-23] MEDS ORDERED: oxyCODONE/Acetamin 5/325 MG* TAB PO PRN ×4 (21:44→22:38)
[2018-10-23] MEDS ORDERED: Acetaminophen TAB* 325 MG PO PRN (21:44)
[2018-10-23] MEDS ORDERED: Ibuprofen TAB* 600 MG PO PRN (21:44)
[2018-10-23] MEDS ORDERED: Glycerin ADULT SUPP PR PRN (21:44)
[2018-10-23] MEDS ORDERED: Morphine PF AMP (0.5MG/ML)* 5 MG/10 ML AMP ONE (21:45)
[2018-10-23] MEDS ORDERED: Phenylephrine 40 MCG/ML SYRINGE ONE (21:45)
[2018-10-23] MEDS ORDERED: OXYTOCIN* 10 UNITS/ML 1 ML VIAL ONE (21:45)
[2018-10-23] MEDS ORDERED: ceFOXitin 2 GM IVPREMIX* 2 GM/50 ML BAG ONE (21:46)
[2018-10-23] MEDS ORDERED: Sodium Citrate/Citric Acid* 15 ML UDC ONE (21:46)
[2018-10-23] MEDS ORDERED: ceFOXitin 2 GM IVPREMIX* 2 GM/50 ML BAG IVPB ONE (21:49)
[2018-10-23 21:50] LABS: Hematocrit 33 % (35-47); Hemoglobin 11.1 g/dL (12.0-16.0); Mean Corpuscular HGB Conc 34 g/dL (31-36); Mean Corpuscular Hemoglobin 29 pg (27-31); Mean Corpuscular Volume 86 fL (80-97); Mean Platelet Volume 9.6 fL (7.4-10.4); Platelet Count 263 10^3/uL (150-450); Red Blood Count 3.81 10^6 /uL (3.70-4.87); Red Cell Distribution Width 14 % (10-15); White Blood Count 12.7 10^3/uL (3.5-10.8)
[2018-10-23] MEDS ORDERED: Lactated Ringers 1000 ML Bag* 1,000 ML IV SCH ×2 (22:00→23:00)
[2018-10-23] MEDS ORDERED: Buffered Lidocaine 1% SYRIN* 1 ML/SYRINGE INTRADERM ONE (22:01)
[2018-10-23] MEDS ORDERED: Sodium Citrate/Citric Acid* 15 ML UDC PO ONE (22:01)
[2018-10-23] MEDS ORDERED: Naloxone* 0.4 MG/ML 1 ML VIAL IV PRN ×2 (22:02→22:38)
[2018-10-23] MEDS ORDERED: Ondansetron INJ* 2 MG/ML VIAL IV PRN ×2 (22:02→22:38)
[2018-10-23] MEDS ORDERED: fentaNYL* 50 MCG/ML 2 ML VIAL (100 MCG VIAL) IV PRN (22:02)
[2018-10-23] MEDS ORDERED: diPHENhydraMINE IV* 50 MG/ML 1 ml VIAL (BENADRYL) IV PRN (22:38)
[2018-10-23] MEDS ORDERED: Nalbuphine* 10 MG/ML 1 ML VIAL IV PRN (22:38)
--- NOTE | 2018-10-24 00:28 | OP ---
DATE OF OPERATION: 10/23/18 - ROOM #115 DATE OF : [birth year] SURGEON: Jenny Albright MD CURB SUPERVISOR: Manuel Pelayo CNM ANESTHESIOLOGIST: Dr. Trinidad. ANESTHESIA: Spinal. PRE-OP DIAGNOSES: 40 plus 1 week gestation with spontaneous rupture of membranes, active labor and history of previous . POST-OP DIAGNOSES: 40 plus 1 week gestation with spontaneous rupture of membranes, active labor and history of previous . OPERATIVE PROCEDURE: Repeat low transverse section. ESTIMATED BLOOD LOSS: 800 cc. URINE OUTPUT: 150 cc. IV FLUIDS: 50 cc lactated Ringer's. MATERIAL TO LAB: Cord blood. INDICATIONS: This patient was a 38-year-old 2, para 1, who had initially wanted a trial of labor after , but earlier today had changed her mind and desired to proceed directly to a . She was scheduled for a repeat tomorrow, but presented this evening with spontaneous rupture of membranes including meconium. On presentation, the patient was nitin regularly, but had a minimally dilated cervix. Shortly after presentation, there was a significant heart rate deceleration, but this recovered and then looked reassuring. The patient was extensively counseled and consent was signed. FINDINGS: Normal-appearing uterus, fallopian tubes and ovaries. Delivery was productive of a female weighing 8 pounds 8 ounces with Apgars of 9 and 10. Time of delivery was 2234. COMPLICATIONS: None. DESCRIPTION OF PROCEDURE: The risks, benefits, and alternatives were described to the patient, and informed consent was obtained. The patient was taken to the operating room with IV running, where spinal anesthesia was induced and found to be adequate. The patient was prepped and draped in normal sterile fashion in the dorsal supine position with a leftward tilt. A Pfannenstiel skin incision was made with a scalpel through the patient's previous incision. This was carried down to the underlying fascia using the scalpel. The fascia was scored in the midline, and the incision was extended using Quinones scissors. The fascia was dissected off the underlying rectus muscles using blunt and sharp dissection. The rectus muscles were in the midline using dissection with a Rebecca clamp. The peritoneum was then entered bluntly. A bladder blade was placed. A bladder flap was created sharply using Metzenbaum scissors. A low transverse uterine incision was then made with the scalpel. This was carried down to the amniotic membranes. The membranes were then ruptured, productive of meconium stained fluid. The uterine incision was extended using blunt traction. The head was elevated to the level of the incision, and, with fundal pressure, the head delivered without difficulty. The shoulders then were also both delivered and the body followed. The infant had excellent tone and cried immediately on delivery. The cord was doubly clamped and cut. The infant was then handed to the awaiting edge banding off bearer. Cord blood was collected. The placenta was delivered with manual extraction. The uterus was then exteriorized and cleared of all clots and debris. The uterine incision was then reapproximated using 0 Vicryl in a running-locked fashion. A second layer of imbricating 0 Vicryl sutures was then also placed for good hemostasis. The posterior cul-de-sac was irrigated with saline. The uterus was then returned to the abdomen. The incision was reinspected and still noted to be hemostatic. The peritoneum was closed with 3-0 Vicryl in a running fashion. The fascia was closed with 0 Vicryl in a running fashion. The subcutaneous tissues were copiously irrigated and made hemostatic using the Bovie. The skin was then closed with 4-0 Monocryl, then Mastisol and steristrips were applied. A sterile bandage was then placed over the incision. The patient tolerated the procedure well. Sponge, lap, and needle counts were correct x2. [id number]/[facility] #: [id number] MTDD
[2018-10-24 00:58] LABS: Urine Benzodiazepine Screen None Detected (None Detect); Urine Opiates Screen None Detected (None Detect)
[2018-10-24] MEDS: Ketorolac INJ* 30 MG/ML 1 ML VIAL IV PRN ×3 (06:17→19:53)
[2018-10-24] MEDS: Levothyroxine TAB* 50 MCG TAB PO SCH (06:17)
[2018-10-24 06:18] LABS: ABS Lymphocytes 1.4 10^3/ul (1.0-4.8); ABS Monocytes 0.9 10^3/ul (0-0.8); ABS Neutrophils 12.2 10^3/ul (1.5-7.7); Eosinophil % 0.3 %; Hematocrit 27 % (35-47); Hemoglobin 9.4 g/dL (12.0-16.0); Lymphocyte % 9.8 %; Mean Corpuscular HGB Conc 35 g/dL (31-36); Mean Corpuscular Hemoglobin 30 pg (27-31); Mean Corpuscular Volume 86 fL (80-97); Mean Platelet Volume 8.8 fL (7.4-10.4); Platelet Count 203 10^3/uL (150-450); Red Blood Count 3.15 10^6 /uL (3.70-4.87); Red Cell Distribution Width 14 % (10-15); White Blood Count 14.6 10^3/uL (3.5-10.8)
[2018-10-24] MEDS: Simethicone TAB* 80 MG TAB.CHEW PO SCH ×4 (08:32→21:48)
[2018-10-24] MEDS: Ferrous Gluconate TAB* 324 MG TAB PO SCH ×2 (08:33→21:48)
[2018-10-24] MEDS: Docusate CAP* 100 MG PO SCH ×3 (08:33→21:48)
[2018-10-24] MEDS ORDERED: oxyCODONE/Acetamin 5/325 MG* TAB PO PRN (14:12)
[2018-10-24] MEDS: oxyCODONE/Acetamin 5/325 MG* TAB PO PRN (18:11)
[2018-10-25] MEDS: oxyCODONE/Acetamin 5/325 MG* TAB PO PRN ×3 (01:08→21:24)
[2018-10-25] MEDS: Levothyroxine TAB* 50 MCG TAB PO SCH (06:51)
[2018-10-25] MEDS: Ibuprofen TAB* 600 MG PO PRN ×3 (06:51→18:50)
[2018-10-25] MEDS: Simethicone TAB* 80 MG TAB.CHEW PO SCH ×4 (08:18→20:08)
[2018-10-25] MEDS: Ferrous Gluconate TAB* 324 MG TAB PO SCH ×2 (08:18→20:08)
[2018-10-25] MEDS: Docusate CAP* 100 MG PO SCH ×3 (08:18→20:08)
[2018-10-26] MEDS: Ibuprofen TAB* 600 MG PO PRN ×3 (00:56→12:51)
[2018-10-26] MEDS: Levothyroxine TAB* 50 MCG TAB PO SCH (06:58)
[2018-10-26 08:55] VITALS: BP 107/56
[2018-10-26] MEDS: Docusate CAP* 100 MG PO SCH (09:13)
[2018-10-26] MEDS: Simethicone TAB* 80 MG TAB.CHEW PO SCH ×2 (09:13→12:02)
[2018-10-26] MEDS: Ferrous Gluconate TAB* 324 MG TAB PO SCH (09:13)
== END 2018-10-26 14:20 | disposition home or self-care (01) | DRG 540 ==
LOC: MCHOB 20:56
PROVIDERS: ADMIT Obstetrics & Gynecology; ATTEND Obstetrics & Gynecology
PROC: 4A1HXCZ Monitoring of Products of Conception, Cardiac Rate, External Approach (ICD-10-PCS; 2018-10-23)
PROC: 10D00Z1 Extraction of Products of Conception, Low, Open Approach (ICD-10-PCS; principal; 2018-10-23 22:03)
DX: O34.211 Maternal care for low transverse scar from previous cesarean delivery (principal); O48.0 Post-term pregnancy; O77.0 Labor and delivery complicated by meconium in amniotic fluid; O76 Abnormality in fetal heart rate and rhythm complicating labor and delivery; O90.81 Anemia of the puerperium; O99.284 Endocrine, nutritional and metabolic diseases complicating childbirth; E03.9 Hypothyroidism, unspecified; Z87.891 Personal history of nicotine dependence; Z3A.40 40 weeks gestation of pregnancy; Z37.0 Single live birth; Z91.013 Allergy to seafood
CPT/HCPCS: 36415; 80307; 85025; 85027; 86850; 86900; 86901; 87641; A9270-GY; J0694; J1885; J2590

== ENCOUNTER 2019-01-28 15:12 | Emergency (ER) | payer BC ==
[2019-01-28 16:30] VITALS: BP 104/67
--- NOTE | 2019-01-28 17:23 | UC ---
Throat Pain/Nasal Damon HPI - HPI Summary HPI Summary: 38-year-old woman comes in with chief complaint of 3 weeks of upper respiratory tract infection symptoms and also feeling foggy. Patient does have a history of hypothyroidism and is being treated with Synthroid. She had a baby 3 months ago and her dose of her Synthroid was changed at that time. She is continuing to have some postnasal drip that she has frontal and maxillary sinus pressure. No recent fevers or chills. She is breast-feeding and she does wonder if dehydration as contributing to the headache. - History of Current Complaint Chief Complaint: UCGeneralIllness Stated Complaint: HEADACHE Time Seen by Provider: 01/28/19 17:12 Hx Last Menstrual Period: post Pain Intensity: 2 - Allergies/Home Medications Allergies/Adverse Reactions: Allergies Allergy/AdvReac Type Severity Reaction Status Date / Time shellfish derived Allergy Severe Anaphylatic Verified 01/28/19 16:30 Shock Home Medications: Home Medications Cholecalciferol (Vitamin D3) [Vitamin D3] 1,000 unit PO DAILY 01/28/19 [History Confirmed 01/28/19] PMH/Surg Hx/FS Hx/Imm Hx Previously Healthy: Yes Endocrine History: Hypothyroidism - Surgical History Surgical History: Yes Surgery Procedure, Year, and Place: x2 - Family History Known Family History: Positive: Non-Contributory - Social History Alcohol Use: Rare Substance Use Type: None Smoking Status (MU): Never Smoked Tobacco - Immunization History Most Recent Influenza Vaccination: declined last flu season Most Recent Pneumonia Vaccination: never Review of Systems All Other Systems Reviewed And Are Negative: Yes Constitutional: Positive: Other - SEE HPI Skin: Positive: Negative Eyes: Positive: Negative ENT: Positive: Sinus Congestion, Sinus Pain/Tenderness Respiratory: Positive: Negative Cardiovascular: Positive: Negative Gastrointestinal: Positive: Negative Motor: Positive: Negative Neurovascular: Positive: Negative Musculoskeletal: Positive: Negative Neurological: Positive: Headache Psychological: Positive: Negative Is Patient Immunocompromised?: No Physical Exam Triage Information Reviewed: Yes Appearance: Well-Appearing, No Pain Distress, Well-Nourished Vital Signs: Initial Vital Signs Temp 97.4 F 01/28/19 16:20 Pulse 61 01/28/19 16:20 Resp 16 01/28/19 16:20 BP 104/67 01/28/19 16:20 Pulse Ox 100 01/28/19 16:20 Vital Signs Reviewed: Yes Eye Exam: Normal Eyes: Positive: Conjunctiva Clear ENT: Positive: Pharynx normal, Nasal congestion, TMs normal Neck: Positive: Supple Respiratory: Positive: Lungs clear, Normal breath sounds, No respiratory distress Cardiovascular: Positive: RRR Musculoskeletal: Positive: Strength Intact, ROM Intact Neurological: Positive: Alert, Muscle Tone Normal Psychological: Positive: Age Appropriate Behavior Skin Exam: Normal Throat Pain/Nasal Course/Dx - Course Course Of Treatment: Most likely cause for the patient's headache and feeling foggy is a sinus infection due to upper respiratory tract infection this been going on for 3 weeks. And treat that with amoxicillin and also recommended saline nasal spray and increasing steam to clear the sinuses. Patient reports that when she feels foggy is quite often because her thyroid is out of balance and therefore we are checking a TSH and free T4 today. Patient is to follow-up with her primary care doctor get reevaluated sooner if worse or any questions or concerns. - Differential Dx/Diagnosis Provider Diagnosis: Sinusitis, Adult hypothyroidism Discharge ED - Sign-Out/Discharge Documenting (check all that apply): Patient Departure All imaging exams completed and their final reports reviewed: No Studies - Discharge Plan Condition: Stable Disposition: HOME Prescriptions: Amoxicillin PO (*) [Amoxicillin 875 MG (*)] 875 mg PO BID #20 tab Patient Education Materials: Sinusitis (ED), Hypothyroidism (ED) Referrals: Loyda Oropeza PA [Primary Care Provider] - Additional Instructions: FOLLOW UP WITH YOUR DOCTOR IF NOT COMPLETELY IMPROVED. GET REEVALUATED SOONER IF NOT IMPROVING OR YOUR CONDITION WORSENS OR ANY QUESTIONS OR CONCERNS - Billing Disposition and Condition Condition: STABLE Disposition: Home
[2019-01-29 12:16] LABS: TSH (Thyroid Stimulating Horm) 7.45 mcIU/mL (0.34-5.60)
[2019-01-29 12:20] LABS: Free T4 0.83 ng/dL (0.61-1.12)
--- NOTE | 2019-01-30 07:16 | UC ---
- Progress Note Progress Note: Lab results come back from January 28, 2019. TSH is elevated at 7.45 normal range is 0.34-5.6. Free T4 is normal at 0.83 normal range is 0.61-1.12. Patient does have hypothyroidism history. Nursing to call patient inform her the results and ensure that the patient will be following up with her primary care doctor for the elevated TSH. Course/Dx - Diagnoses Provider Diagnoses: Sinusitis, Adult hypothyroidism Discharge ED - Sign-Out/Discharge Documenting (check all that apply): Patient Departure All imaging exams completed and their final reports reviewed: No Studies - Discharge Plan Condition: Stable Disposition: HOME Prescriptions: Amoxicillin PO (*) [Amoxicillin 875 MG (*)] 875 mg PO BID #20 tab Patient Education Materials: Sinusitis (ED), Hypothyroidism (ED) Referrals: Loyda Oropeza PA [Primary Care Provider] - Additional Instructions: FOLLOW UP WITH YOUR DOCTOR IF NOT COMPLETELY IMPROVED. GET REEVALUATED SOONER IF NOT IMPROVING OR YOUR CONDITION WORSENS OR ANY QUESTIONS OR CONCERNS - Billing Disposition and Condition Condition: STABLE Disposition: Home
== END 2019-01-28 17:39 | disposition home or self-care (01) ==
LOC: UCCORT 15:12
DX: J32.9 Chronic sinusitis, unspecified (principal); E03.9 Hypothyroidism, unspecified; Z79.890 Hormone replacement therapy; Z91.013 Allergy to seafood
CPT/HCPCS: 36415; 84439; 84443; 99212; G0463

== ENCOUNTER 2019-04-02 13:38 | Emergency (ER) | payer BC ==
[2019-04-02 14:12] VITALS: BP 115/47
--- NOTE | 2019-04-02 14:17 | UC ---
Eye Complaint HPI - HPI Summary HPI Summary: Patient is a 38yo female presenting with c/o b/l eye redness, yellowish discharge, and discomfort x2 days. Patient states it began in the left eye and spread to the R eye. Notes intermittent itching. Denies URI symptoms and allergies. Denies vision changes. Denies contact lens use. Patient notes that her 5yo daughter was just treated for pink eye with antibiotic drops and that she sleeps with her every night so she is concerned she got it from her. Also states she is nursing her 5mo old and is concerned she may spread it to her. - History of Current Complaint Chief Complaint: UCEye Stated Complaint: BILATERAL EYE COMPLAINT Hx Obtained From: Patient Hx Last Menstrual Period: nursing Onset/Duration: Gradual Onset, Lasting Days Timing: Constant Pain Intensity: 0 - Allergies/Home Medications Allergies/Adverse Reactions: Allergies Allergy/AdvReac Type Severity Reaction Status Date / Time shellfish derived Allergy Severe Anaphylatic Verified 04/02/19 14:12 Shock PMH/Surg Hx/FS Hx/Imm Hx Previously Healthy: Yes - Surgical History Surgical History: Yes Surgery Procedure, Year, and Place: x2 - Family History Known Family History: Positive: Non-Contributory - Social History Alcohol Use: Rare Substance Use Type: None Smoking Status (MU): Never Smoked Tobacco - Immunization History Most Recent Influenza Vaccination: declined last flu season Most Recent Pneumonia Vaccination: never Review of Systems All Other Systems Reviewed And Are Negative: Yes Constitutional: Positive: Negative Eyes: Positive: Drainage - yellowish drainage/crusting b/l, Eye Redness - b/l. Negative: Blurred Vision, Diplopia, Photophobia ENT: Positive: Negative Respiratory: Positive: Negative Cardiovascular: Positive: Negative Neurological: Positive: Negative Physical Exam Triage Information Reviewed: Yes Appearance: Well-Appearing, No Pain Distress, Well-Nourished Vital Signs: Initial Vital Signs Temp 98.2 F 04/02/19 14:07 Pulse 75 04/02/19 14:07 Resp 16 04/02/19 14:07 BP 115/47 04/02/19 14:07 Pulse Ox 100 04/02/19 14:07 Vital Signs Reviewed: Yes Eye Exam: Other - PERRLA. EOM intact Eyes: Positive: Conjunctiva Inflamed - b/l, Discharge - yellowish crusting noted in medial canthus of both eyes ENT Exam: Normal ENT: Positive: Hearing grossly normal, Pharynx normal, Uvula midline Neck exam: Normal Neck: Positive: Supple, Nontender, No Lymphadenopathy Respiratory: Positive: No respiratory distress Neurological: Positive: Alert Psychological: Positive: Age Appropriate Behavior Skin Exam: Normal - no erythema Eye Complaint Course/Dx - Course Course Of Treatment: I treated patient with polytrim eye drops for conjunctivitis and exposure to bacterial conjunctivitis. Instructed to follow up with pcp if symptoms persist. Patient voiced understanding and agreed with treatment plan. - Differential Dx/Diagnosis Differential Diagnosis/HQI/PQRI: Other - viral conjunctivitis Provider Diagnosis: Conjunctivitis Discharge ED - Sign-Out/Discharge Documenting (check all that apply): Patient Departure All imaging exams completed and their final reports reviewed: No Studies - Discharge Plan Condition: Stable Disposition: HOME Prescriptions: Polymyx/Trimethoprim OPTH* [Polytrim OPHTH*] 1 - 2 drop BOTH EYES TID 7 Days #1 btl Patient Education Materials: Conjunctivitis (ED) Referrals: Loyda Oropeza PA [Primary Care Provider] - If Needed Additional Instructions: Place 1-2 drops in each eye 3 times daily for 7 days. Wash your hands often and wipe down surfaces at home. Follow up with your primary care provider if symptoms do not resolve within 7 days. - Billing Disposition and Condition Condition: STABLE Disposition: Home
== END 2019-04-02 14:25 | disposition home or self-care (01) ==
LOC: UCCORT 13:38
DX: H10.9 Unspecified conjunctivitis (principal); Z91.030 Bee allergy status
CPT/HCPCS: 99212; G0463